=== PATIENT | female | born 1945 | race African-American/Black ===

== ENCOUNTER → 2016-10-31 | Day surgery (SDC) | payer OTHER ==
--- NOTE | 2016-11-01 10:10 | OP ---
DATE OF OPERATION: 10/31/2016 PREOPERATIVE DIAGNOSIS: Abnormal left mammography. POSTOPERATIVE DIAGNOSIS: Abnormal left mammography. PROCEDURE: Left stereotactic needle biopsy with clips. SURGEON: Page Verdugo MD ANESTHESIA: Local. COMPLICATIONS: None. This was a sterile procedure. INDICATIONS FOR PROCEDURE: Patient presented for a screening mammogram that noted a density mostly on the MLO view in the upper left breast. The recommendation was needle biopsy. The procedure was discussed with all the questions answered. PROCEDURE IN DETAIL: Patient was brought to [facility]. laid prone on the OR table. Using the lateral oblique view, the density in the left breast was identified. A sterile prep was obtained. A target was chosen, there was a positive stroke margin. Using Betadine and 1% lidocaine, a 9-gauge Suros device was used to take several cores from this area. Cores were sent to Pathology in formalin. A clip was deployed in the area. Hemostasis was ensured with direct pressure. Steri-Strips were used to close the incision. She tolerated the procedure well and left the breast imaging center in good condition. PAGE VERDUGO M.D. [id number]
--- NOTE | 2016-11-01 15:09 | PATH ---
Surgical Pathology Report Patient Name: MARY HODGE [facility]. Rec. #: [id number] /Age/Gender: 1945 (Age: 71) / F Account: [id number] Location: [facility] Taken: 10/31/2016 Received: 10/31/2016 Reported: 11/01/2016 Physicians: Page Garrido M.D. Specimen(s) Received LEFT BREAST BIOPSY Clinical History Suspicious density, left breast Final Diagnosis BREAST, LEFT, DENSITY, STEREOTACTIC CORE BIOPSY: INVASIVE DUCTAL CARCINOMA, MODERATELY DIFFERENTIATED (SEE COMMENT). FOCAL DUCTAL CARCINOMA IN SITU (DCIS), INTERMEDIATE NUCLEAR GRADE, SOLID TYPE, WITH MICROCALCIFICATIONS. Comment: The greatest extent of invasive carcinoma in one core is 1.0 cm. Immunohistochemical stain for E-cadherin performed and interpreted at [facility] on block #1 shows the following: the tumor stains are positive for e-cadherin with membranous staining supporting ductal phenotype. Immunohistochemical stains for p63 and SMM-HC performed and interpreted at [facility] on block #1 show loss of myoepithelial cells in invasive carcinoma and preserved myoepithelial cells in foci of DCIS. Results of Estrogen Receptor (ER) and Progesterone Receptor (WV) studies performed on block #1at [facility] are as follows: ER (clone [id number] mouse monoclonal antibody by [employer]): >95% nuclear staining with strong to moderate intensity (Positive). WV (clone16 mouse monoclonal antibody by Leica):0 % nuclear staining (Negative). Results of Her2 and Ki67 studies will be reported separately in an addendum. Positive and negative controls (internal if applicable) show appropriate results. Formalin fixation and cold ischemic times are within current ASCO/CAP recommendations for ER, WV and Her2 testing. The case was discussed with Dr. Garrido on 11/01/16. Electronically Signed Rojelio Spence M.D. Addendum Reported: 11/02/2016 Addendum Diagnosis Results of Her2 (IHC) & Ki-67 studies performed on block #1 at [place], [place] ([id number]) are as follows: Her2 IHC (EP3 from [employer], formerly known as [id number], using Dimas Polymer Refine detection kit): 1+ (Negative) Ki-67: ~20% (Intermediate proliferation index) Positive and negative controls (internal if applicable) show appropriate results. Rojelio Spence M.D. Gross Description Received in formalin, labeled "left breast with density," are 7 claudio-yellow, cylindrical portions of fibroadipose tissue ranging from 1.9-3.0 cm. in length and averaging 0.2 cm. in diameter. The specimen is submitted in toto in 2 cassettes. Time to formalin fixation: 8 minutes Total formalin fixation time: Approximately 8 hours. 10/31/201610/31/2016
== END | disposition home or self-care (01) ==
LOC: FMAMMOTONE 08:08
PROVIDERS: ATTEND Surgery
PROC: 0HBU3ZX Excision of Left Breast, Percutaneous Approach, Diagnostic (ICD-10-PCS; principal; 2016-10-31)
DX: C50.112 Malignant neoplasm of central portion of left female breast (principal); D05.12 Intraductal carcinoma in situ of left breast; R92.8 Other abnormal and inconclusive findings on diagnostic imaging of breast
CPT/HCPCS: 19081; 88305-TC; 88341-TC; 88342-TC

== ENCOUNTER 2016-12-05 09:28 | Day surgery (SDC) | payer OTHER ==
[2016-12-04 09:51] VITALS: BMI 31.9
[2016-12-05] MEDS ORDERED: DEXAMETHASONE SOD PHOSPHATE/PF 10 MG/ML SDV ONE (13:47)
[2016-12-05] MEDS ORDERED: LIDOCAINE HCL 1%, 10 MG/ML (20ML VIAL) ONE ×2 (13:48→14:32)
[2016-12-05] MEDS ORDERED: ROPIVACAINE HCL 0.5% 30ML VIAL ONE (13:48)
[2016-12-05] MEDS ORDERED: ISOSULFAN BLUE 10 MG/ML VIAL SQ ONE (14:32)
[2016-12-05] MEDS ORDERED: MIDAZOLAM HCL 2 MG/2 ML SINGLE DOSE VIAL ONE (14:32)
[2016-12-05] MEDS ORDERED: ONDANSETRON 4 MG/2 ML VIAL IVPUSH PRN (14:55)
[2016-12-05] MEDS ORDERED: oxyCODONE HCL 5 MG TABLET PO PRN (14:55)
[2016-12-05] MEDS ORDERED: LACTATED RINGERS SOLUTION 1,000 ML IV SCH (15:00)
[2016-12-05] MEDS ORDERED: PROPOFOL 20 ML ONE ×3 (15:04→15:41)
[2016-12-05] MEDS ORDERED: ceFAZolin SODIUM 1 GM VIAL ONE (15:08)
[2016-12-05] MEDS ORDERED: ceFAZolin SODIUM 1 GM VIAL IVPB ONE (15:30)
[2016-12-05 17:31] VITALS: TEMP 97.9
[2016-12-05 20:22] VITALS: BP 145/84; PULSE 79
--- NOTE | 2016-12-06 10:27 | OP ---
DATE OF OPERATION: 12/05/2016 PREOPERATIVE DIAGNOSIS: Left breast cancer. POSTOPERATIVE DIAGNOSIS: Left breast cancer. PROCEDURE: Left breast wire-localized lumpectomy and sentinel node biopsy. SURGEON: Page Garrido MD ANESTHESIA: Paravertebral block and IV sedation. ESTIMATED BLOOD LOSS: Minimal. COMPLICATIONS: None. This was a sterile procedure. INDICATIONS FOR PROCEDURE: Patient presented with screening mammography that noted a density in the central left breast. A stereotactic needle biopsy showed invasive carcinoma. My recommendation was a lumpectomy and sentinel node biopsy. The procedure was discussed with all her questions answered. PROCEDURE IN DETAIL: Patient was brought to [facility], first taken to Breast Imaging where a wire used to localize a clip in the central left breast. Then, she was taken to Nuclear Medicine where technetium sulfur colloid was injected in the left breast 12 o'clock areolar border by the radiologist. Patient was then brought up to the operating room, and after a paravertebral block, she was taken into the operating room. After IV sedation and IV antibiotics, the left breast and axilla were prepped and draped in the usual sterile fashion. Next, 5 mL of Lymphazurin blue dye were injected into the left subareolar plexus by me, and the breast was massaged for 5 minutes. The area was then re-prepped and re-draped. A 4-cm incision was made in the left axilla, carried down through the clavipectoral fascia to identify 4 sentinel lymph nodes. The first lymph node was blue, not hot. The second was a left axillary sentinel node that was blue and hot. The third one was blue and hot, and the last, fourth, lymph node in the left axilla was a sentinel node, blue, not hot. At the end of the procedure, there was no blue dye radioactivity or pathologic-feeling lymph nodes in the left axilla. Therefore, after hemostasis was assured, the left lumpectomy was performed. A periareolar incision was made in the left axilla in the upper part of the breast, and the wire was used as a guide to get down to the area . This was excised en bloc and tagged with a long stitch lateral, short stitch superior, sent as a left breast lumpectomy for specimen radiograph. Hemostasis assured with electrocautery. The specimen radiograph showed the wire and clip to be intact on the specimen. This was sent to Pathology for permanent section. All the lymph nodes were sent to Pathology for permanent section as well. Once hemostasis was assured, the parenchyma approximated with interrupted 2-0 Vicryl, skin approximated with interrupted 3-0 Vicryl and running 4-0 Biosyn. The axillary incision was also closed in the routine fashion using 3-0 interrupted Vicryl as well as 4-0 Biosyn running stitch. She tolerated the procedure well. The incisions were then covered with Tegaderm as well as 4 x 4 and a mammary binder. She tolerated the procedure well, was taken to recovery in good condition. Tahir [id number]
--- NOTE | 2016-12-07 17:13 | PATH ---
Surgical Pathology Report Patient Name: MARY HODGE [facility]. Rec. #: [id number] /Age/Gender: 1945 (Age: 71) / F Account: [id number] Location: [facility] SURGICAL Taken: 12/05/2016 Received: 12/06/2016 Reported: 12/07/2016 Physicians: Page Garrido M.D. Specimen(s) Received A: LEFT BREAT LUMPECTOMY B: LEFT AXILLARY SENTINEL LYMPH NODE #1 C: LEFT AXILLARY SENTINEL LYMPH NODE #2 D: LEFT AXILLARY SENTINEL LYMPH NODE#3 E: LEFT AXILLARY SENTINEL LYMPH NODE #4 Clinical History Breast cancer Final Diagnosis A. BREAST, LEFT, LUMPECTOMY: INVASIVE DUCTAL CARCINOMA, MODERATELY DIFFERENTIATED (LOU HISTOLOGIC SCORE OF 7: TUBULE FORMATION 2 OF 3, NUCLEAR PLEOMORPHISM 3 OF 3, MITOTIC RATE 2 OF 3). INVASIVE CARCINOMA FOCALITY AND FOCUS: SINGLE FOCUS, 1.2 CM. FOCAL DUCTAL CARCINOMA IN SITU (DCIS), INTERMEDIATE TO HIGH NUCLEAR GRADE, CRIBRIFORM TYPE. DCIS EXTENT: DCIS IS MINOR (<25%), ASSOCIATED WITH INVASIVE CARCINOMA. SURGICAL RESECTION MARGINS: NEGATIVE FOR INVASIVE CARCINOMA OR DCIS; CLOSEST RESECTION MARGIN (SUPERIOR) IS 0.5 CM AWAY FROM CARCINOMA. PRIOR BIOPSY SITE CHANGES IDENTIFIED. LYMPHOVASCULAR INVASION: NOT DEFINITIVELY IDENTIFIED. PERINEURAL INVASION: NOT IDENTIFIED. SURROUNDING BREAST TISSUE: FOCAL ATYPICAL DUCTAL HYPERPLASIA (ADH); FIBROCYSTIC CHANGE WITH USUAL AND PAPILLARY DUCTAL HYPERPLASIA, ADENOSIS, CYSTIC APOCRINE METAPLASIA, DUCT DILATATION, CYSTS FORMATION AND STROMAL FIBROSIS. PATHOLOGIC STAGING: pT1c pN0 (ALSO REFER TO CHECKLIST BELOW). RECEPTOR STATUS: REFER TO CHECKLIST BELOW. B. SENTINEL LYMPH NODE #1, LEFT AXILLARY, BIOPSY: BENIGN FATTY TISSUE, NO LYMPHOID TISSUE IDENTIFIED. C. SENTINEL LYMPH NODE #2, LEFT AXILLARY, BIOPSY: TWO LYMPH NODE NEGATIVE FOR METASTATIC CARCINOMA BY H&E STAIN (0/2). D. SENTINEL LYMPH NODE #3, LEFT AXILLARY, BIOPSY: TWO LYMPH NODES NEGATIVE FOR METASTATIC CARCINOMA BY H&E STAIN (0/2). E. SENTINEL LYMPH NODE #4, LEFT AXILLARY, BIOPSY: ONE LYMPH NODE NEGATIVE FOR METASTATIC CARCINOMA BY H&E STAIN (0/1). Comments Breast Invasive Carcinoma: Surgical Pathology Cancer Case Summary Based on AJCC/UICC TNM, 7th edition Procedure _x_ Excision with image-guided localization Lymph Node Sampling _x_ [place] lymph nodes Specimen Laterality _x_ Left Tumor Size: Size of Largest Invasive Carcinoma Greatest dimension of largest focus of invasion over 1 mm: 1.2 cm (12 mm) Tumor Focality _x_ Single focus of invasive carcinoma Macroscopic and Microscopic Extent of Tumor Skin _x_ No skin present Nipple _x_ Not applicable (excisions less than total mastectomy) Skeletal Muscle _x_ No skeletal muscle present Ductal Carcinoma In Situ (DCIS) _x_ DCIS is present _x_ as a minor component (< 25% of tumor) Histologic Type of Invasive Carcinoma : _x_ Invasive carcinoma of no special type (ductal, not otherwise specified) Histologic Grade: ([place] Histologic Score) Tubular Differentiation _x_ Score 2 Nuclear Pleomorphism _x_ Score 3 Mitotic Rate _x_ Score 2 Overall Grade _x_ Grade 2: scores of 7 (moderately differentiated) Margins _x_ Margins uninvolved by invasive carcinoma Distance from closest margin: 5 mm Specify margin: superior _x_ Margins uninvolved by DCIS (required only if residual DCIS is present in specimen) Distance from closest margin: >5 mm Specify margin: superior Lymph-Vascular Invasion _x_ Not definitively identified Lymph Nodes Total number of lymph nodes examined (sentinel and nonsentinel): 5 Number of sentinel lymph nodes examined: 5 Number of lymph nodes with macrometastases (> 2 mm): 0 Number of lymph nodes with micrometastases (>0.2 mm to 2 mm and/or >200cells):0 Number of lymph nodes with isolated tumor cells (=0.2 mm and =200 cells): 0 Size of largest metastatic deposit (if present): 0 Extranodal Extension _x_ Not applicable Pathologic Staging (pTNM) Primary Tumor (Invasive Carcinoma): pT1c Regional Lymph Nodes (pN): pN0(sn) Distant Metastasis (pM): not applicable Biomarker Studies Results of ER and WV studies performed on prior biopsy () at [facility] are as follows: ER (clone 6F11 mouse monoclonal antibody by [employer]): >95% nuclear staining with strong to moderate intensity (Positive). WV (clone16 mouse monoclonal antibody by [employer]): 0% nuclear staining (Negative). Results of Her2 (IHC) & Ki-67 studies performed on prior biopsy () at [place], [place] ([id number]) are as follows: Her2 IHC (EP3 from [employer], formerly known as [id number], using Dimas Polymer Refine detection kit): 1+ (Negative) Ki67: ~20% (Intermediate proliferation index) Positive and negative controls (internal if applicable) showed appropriate results. Formalin fixation and cold ischemic times were within current ASCO/CAP recommendations for ER, WV and Her2 testing. Electronically Signed Rojelio Spence M.D. Gross Description A. Received fresh on an AccuGrid, labeled "left lumpectomy" is a 5.0 x 4.3 x 2.6 cm. claudio-yellow, irregular, portion of fibroadipose tissue with a needle localization wire present. There is a short suture marking the superior aspect and a long suture marking the lateral aspect, per the surgeon. There is no skin or nipple present. The specimen is inked as follows: Superior blue; inferior green; anterior and lateral red; medial yellow; deep black. The specimen is serially sectioned from anterior to deep. Sectioning reveals a 1.2 x 1.1 x 1.1 cm claudio, indurated mass at 0.6 cm from the superior margin, 0.7 cm from the inferior margin and 0.9 cm from the medial margin. The remaining margins appear clear of the mass. [employer] sections are submitted in 7 cassettes as follows: 1-2-one full face section of mass each (each with superior and inferior margins); 3-medial margin; 4-additional superior margin; 5-lateral margin; 6-anterior margin; 7-deep margin. Time to fixation: not given. Total formalin fixation time: ~25h B. Received in formalin labeled "left axillary sentinel lymph node #1" is a 2.8 x 2.4 x 0.6 cm portion of yellow, lobulated adipose tissue. No definite lymph node is identified. The specimen is bisected and entirely submitted in 2 cassettes. C. Received in formalin labeled "left axillary sentinel lymph node #2" are 2 claudio-blue, irregular lymph nodes measuring 0.7 x 0.5 x 0.4 cm and 0.6 x 0.5 x 0.4 cm. The specimens are bisected and entirely submitted in 2 cassettes as follows: 1-2-one whole bisected lymph node each. D. Received in formalin labeled "left axillary sentinel lymph node #3" are 2 claudio, irregular lymph nodes measuring 0.6 x 0.5 x 0.4 cm and 0.8 x 0.6 x 0.6 cm. The lymph nodes are bisected and entirely submitted in 2 cassettes as follows: 1-2-one whole bisected lymph node each. E. Received in formalin labeled "left sentinel lymph node #4" is a 1.2 x 0.4 x 0.4 cm claudio, irregular lymph node with attached fat. The specimen is bisected and entirely submitted in one cassette. 12/06/201612/06/2016
== END 2016-12-05 18:40 | disposition home or self-care (01) ==
LOC: JASU-SURG 09:28
PROVIDERS: ATTEND Surgery
PROC: 0HBU0ZZ Excision of Left Breast, Open Approach (ICD-10-PCS; principal; 2016-12-05 13:00)
DX: C50.912 Malignant neoplasm of unspecified site of left female breast (principal)
CPT/HCPCS: 19281; 78195-TC; 88307-TC; 94760; A9541